=== PATIENT | female | born 1970 | race Caucasian/White ===

== ENCOUNTER 2022-10-27 09:33 | Outpatient (CLI) | payer OTHER | END 2022-10-27 09:35 | disposition home or self-care (01) | LOC: SONOGRAMA 09:33 | PROVIDERS: ATTEND Pathology Anatomic Pathology & Clinical Pathology | DX: D34 Benign neoplasm of thyroid gland (principal); E04.9 Nontoxic goiter, unspecified; E03.9 Hypothyroidism, unspecified ==